=== PATIENT | female | born 1970 | race Caucasian/White ===

== ENCOUNTER 2021-11-25 08:10 | Outpatient (CLI) | payer OTHER, SELFPAY ==
[2021-11-25 07:15] VITALS: BP 121/61; PULSE 68; RESP 18; TEMP 36.3; O2SAT 98
[2021-11-25 07:32] VITALS: BP 121/64; RESP 18; TEMP 36.3; O2SAT 98
[2021-11-25 08:25] VITALS: BP 130/83; RESP 18; O2SAT 99
== END 2021-11-25 08:30 | disposition home or self-care (01) ==
LOC: US 08:10 → OP CLINIC 08:12
PROVIDERS: PCP Physician Assistant; Visit Provider Family Medicine
DX: M72.2 Plantar fascial fibromatosis (principal)
CPT/HCPCS: 28060; 76942

== ENCOUNTER 2022-01-12 16:45 | Outpatient (RCR) | payer OTHER, SELFPAY | END 2022-10-15 23:59 | disposition home or self-care (01) | PROVIDERS: PCP Physician Assistant; Visit Provider Family Medicine | DX: M72.2 Plantar fascial fibromatosis (principal); Z51.89 Encounter for other specified aftercare | CPT/HCPCS: 97110; 97140; 97162 ==